=== PATIENT | female | born 1950 | race Caucasian/White ===

== ENCOUNTER → 2016-12-27 | Outpatient (CLI) | payer MEDICARE, OTHER ==
--- NOTE | 2016-12-27 14:47 | KCIC ---
PROCEDURE Bilateral knees, three views. HISTORY Pain. FINDINGS Frontal, lateral and oblique views of both knees are obtained. There is mild right medial compartment joint space narrowing with subchondral sclerosis and marginal spurring. There is suspected degenerative subchondral cyst formation involving the right patella. There is no fracture, dislocation or subluxation. There are small joint effusions. IMPRESSION 1. Mild right knee medial and patellofemoral compartment osteoarthritis. 2. Suspected small bilateral knee effusions. Electronically signed by: Azeb Acosta (Dec 27, 2016 14:45:53)
== END | disposition home or self-care (01) ==
LOC: KCIC 13:58
PROVIDERS: ATTEND Family Medicine
DX: M17.9 Osteoarthritis of knee, unspecified (principal); M25.462 Effusion, left knee; M25.461 Effusion, right knee
CPT/HCPCS: 73562

== ENCOUNTER → 2017-04-24 | Outpatient (CLI) | payer MEDICARE, OTHER ==
--- NOTE | 2017-04-24 10:22 | KCIC ---
MR of the left knee Indication: Left knee pain since November. Pain is medial. Technique: The standard multiplanar sequences are obtained. Findings: Medial meniscus: Degenerative tear. Lateral meniscus: Intact. Anterior cruciate ligament: Intact Posterior cruciate ligament: Intact Medial collateral ligament: Mild proximal thickening without tear. Mild fluid along the margin. Iliotibial band: Intact. Posterolateral structures: Fibular collateral ligament, biceps tendon and popliteus tendon are intact. Extensor mechanism: Intact. Fluid: Small joint effusion. Small Jara's cyst. There is some disorganized fluid below the cyst compatible with leakage or rupture. Articular cartilage -patellofemoral joint: Moderate chondromalacia at the patella. -medial compartment: Moderate to severe chondromalacia. Mild subchondral marrow edema at the medial tibial plateau. -lateral compartment:Intact Bones: No acute macro fracture. No aggressive bone destruction. Soft tissue: Otherwise unremarkable. Impression: 1. Medial meniscal tear. 2. Small ruptured Jara's cyst. 3. Primary osteoarthritis. 4. Mild medial collateral ligament sprain. Electronically signed by: Bret Awan MD (04/24/2017 10:18 AM)
== END | disposition home or self-care (01) ==
LOC: KCIC MRI 08:18
PROVIDERS: ATTEND Orthopaedic Surgery
DX: S83.242A Other tear of medial meniscus, current injury, left knee, initial encounter (principal); S83.412A Sprain of medial collateral ligament of left knee, initial encounter; S86.812A Strain of other muscle(s) and tendon(s) at lower leg level, left leg, initial encounter; M17.12 Unilateral primary osteoarthritis, left knee; M25.862 Other specified joint disorders, left knee; X58.XXXA Exposure to other specified factors, initial encounter; Y93.89 Activity, other specified; Y92.89 Other specified places as the place of occurrence of the external cause; Y99.8 Other external cause status
CPT/HCPCS: 73721

== ENCOUNTER 2017-06-11 08:53 | Day surgery (SDC) | payer MEDICARE, OTHER ==
[~2017-06-11] VITALS: Ht 170.2 cm; Wt 70.0 kg
[~2017-06-11 08:53] MED LIST: HYDROmorphone 2 MG/ML VIAL IV PRN; IV RINGERS,LACTATED 1000ML 1,000 ML IV SCH; LIDOCAINE 1% 1 ML SYRINGE. ID PRN; LIDOCAINE 2% PF Vial for OR 5 ML VIAL. ONE; MORPHINE SULFATE 2 MG/ML DISP.SYRIN. IV PRN; ONDANSETRON PF 4 MG/2 ML VIAL. IV PRN; PROCHLORPERAZINE 10 MG/2 ML VIAL. IV PRN; PROPOFOL 20 ML IV ONE; fentaNYL PF VIAL 100 MCG/2 ML VIAL IV PRN; fentaNYL PF VIAL 100 MCG/2 ML VIAL ONE
[2017-06-11] MEDS ORDERED: ALPR0.25 PO (09:13)
[2017-06-11] MEDS ORDERED: SEVOFLURANE 31 TO 60 MINUTES. IH ONE (11:11)
[2017-06-11] MEDS ORDERED: DEXAMETHASONE SOD PHOS 20 MG/5 ML VIAL. ONE (11:11)
--- NOTE | 2017-06-11 11:13 | DISCH ---
DISCHARGE INSTRUCTIONS Condition on Discharge Condition on Discharge: Stable Activity After Discharge Activity Instructions for Disc: Other, see below Other activity instructions: advance activities slowly as tolerated Bathing Instructions: Shower-keep dressing dry Weight Bearing Status after Di: Full weight bearing Diet after Discharge Diet after Discharge: Regular Wound Incision Care Wound/Incision Care: Ice to area for comfort, Keep wound elevated, Change dressing Other wound/incision instructi: remove dressing in 2 days then may get wet in shower Contacting the DRWolf after DC Call your doctor for: Concerns you may have Follow-Up Follow up with: Dr. Knott 7-10 days JEFE KNOTT MD Jun 11, 2017 11:13
[2017-06-11] MEDS ORDERED: HYDR-965 PO (11:14)
[2017-06-11] MEDS ORDERED: BUPIVACAINE MPF 0.5% 30 ML VIAL. ONE (11:26)
[2017-06-11] MEDS ORDERED: ONDANSETRON PF 4 MG/2 ML VIAL. ONE (11:35)
[2017-06-11] MEDS ORDERED: HYDROcodone/APAP 7.5/325MG 1 TAB TABLET PO ONE (12:15)
[2017-06-11 12:31] VITALS: BP 157/91
--- NOTE | 2017-06-11 12:58 | PDOC4 ---
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 Since then has had mechanical pain symptoms of catching and locking on physical examination had a positive Dana's sign with medial joint line tenderness and MRI had confirmed clinical suspicion of medial meniscus tear had gone over with her the risks benefits postoperative course of operative treatment and rationale including the structure and function of the meniscus. All her questions were answered I particularly emphasized the fact that I cannot do any degenerative changes present and they would have to be dealt with symptomatically so she may not get complete pain relief from the procedure and in addition may have surgical risks of infection medical or anesthetic complications among others. All her questions were answered she wants to proceed with surgical evaluation and treatment. Operative text: Patient was identified procedure verified patient was placed in supine position on the operating table after adequate amounts of general endotracheal anesthesia were administered left lower extremity was prepped and draped in standard sterile fashion with a thigh tourniquet and the arthroscopic knee redd. After timeout was performed patient procedure identified and verified the left lower extremity was exsanguinated with Esmarch bandage tourniquet inflated to 250 mmHg anterolateral portal was established a medial portal established using spinal needle localization and the knee joint was systematically examined she was noted to have a displaceable tear of the posterior horn medial meniscus along with some grade 3 chondromalacia of the medial femoral condyle with a small chondral flap tear that was treated with chondroplasty the remainder of the cartilage defect was not full-thickness and was stable meniscus had a complex tear involving the body and posterior horn which was trimmed back to stable tissue using arthroscopic punch and shaver and radiused appropriately. ACL and lateral meniscus were probed and found to be intact grade 3 chondral fraying on the patella was trimmed lightly with arthroscopic shaver. The knee was toured to ensure any loose cartilage fragments were removed joint was drained of arthroscopic fluid portals closed with nylon suture area around the fat pad and intra-articular were infused with a total of about 30 mL of half percent plain Marcaine sterile dressings were applied and patient was returned to recovery room in stable condition having tolerated procedure well JEFE SANDHU MD Jun 11, 2017 12:58
== END 2017-06-11 13:34 | disposition home or self-care (01) ==
LOC: SURG 08:53
PROVIDERS: ATTEND Orthopaedic Surgery
DX: S83.232A Complex tear of medial meniscus, current injury, left knee, initial encounter (principal); M23.42 Loose body in knee, left knee; X58.XXXA Exposure to other specified factors, initial encounter; Y93.89 Activity, other specified; Y92.89 Other specified places as the place of occurrence of the external cause; Y99.9 Unspecified external cause status; Z87.39 Personal history of other diseases of the musculoskeletal system and connective tissue; F32.9 Major depressive disorder, single episode, unspecified; Z72.89 Other problems related to lifestyle; Z87.891 Personal history of nicotine dependence
CPT/HCPCS: 29881; 97116; 97161; J0690; J1100; J2405; J2704; J3010; J3490; J2001

== ENCOUNTER → 2018-02-25 | Outpatient (CLI) | payer MEDICARE, OTHER | END | disposition home or self-care (01) | LOC: KCIC DEXA 12:24 | DX: Z13.820 Encounter for screening for osteoporosis (principal); Z78.0 Asymptomatic menopausal state | CPT/HCPCS: 77080 ==

== ENCOUNTER → 2019-07-08 | Outpatient (CLI) | payer MEDICARE ==
[~2019-07-08] MED LIST changes: +ALPR0.25 PO; +HYDR-3165 PO; -HYDROmorphone 2 MG/ML VIAL IV PRN; -IV RINGERS,LACTATED 1000ML 1,000 ML IV SCH; -LIDOCAINE 1% 1 ML SYRINGE. ID PRN; -LIDOCAINE 2% PF Vial for OR 5 ML VIAL. ONE; -MORPHINE SULFATE 2 MG/ML DISP.SYRIN. IV PRN; -ONDANSETRON PF 4 MG/2 ML VIAL. IV PRN; -PROCHLORPERAZINE 10 MG/2 ML VIAL. IV PRN; -PROPOFOL 20 ML IV ONE; -fentaNYL PF VIAL 100 MCG/2 ML VIAL IV PRN; -fentaNYL PF VIAL 100 MCG/2 ML VIAL ONE
--- NOTE | 2019-07-08 16:37 | KCIC ---
EXAM: Thoracolumbar spine-standing DATE: 07/08/2019 12:00 AM INDICATION: Scoliosis COMPARISON: No Prior FINDINGS: There are 12 rib bearing thoracic vertebral bodies and 5 nonrib-bearing lumbar-type vertebral bodies. There is hazy approximately 51 degrees dextroscoliosis of the thoracolumbar spine, apex L1. There is mild lateral translation of L2 on L3 and L3 on L4. Disc height loss is seen at multiple thoracic levels with endplate proliferative change, incompletely assessed on these frontal views. IMPRESSION: Levoscoliosis of the thoracolumbar spine, apex L1. Electronically signed by: Angelo Zarate MD (07/08/2019 4:34 PM) [facility]
== END | disposition home or self-care (01) ==
LOC: KCIC 10:29
PROVIDERS: ATTEND Nurse Practitioner Family
DX: M41.85 Other forms of scoliosis, thoracolumbar region (principal); Z68.25 Body mass index [BMI] 25.0-25.9, adult
CPT/HCPCS: 72082

== ENCOUNTER → 2019-10-28 | Outpatient (CLI) | payer MEDICARE ==
--- NOTE | 2019-10-29 08:06 | KCIC ---
ESOPHAGRAM/BARIUM SWALLOW History: Epigastric pain and belching, cramping Comparison: None. Findings: Barium esophagram was performed. There was no significant hiatal hernia or flow-limiting stricture. There was incomplete relaxation of the lower esophageal sphincter without significant flow limitation. There was mild retention of contrast with patient in prone oblique position, mild esophageal dysmotility. Possibly time: 90 seconds, 34 images Impression: 1. There was mild esophageal dysmotility and incomplete relaxation of the lower esophageal sphincter. Electronically signed by: Karel De Jesus MD (10/29/2019 8:03 AM) [id number]
== END | disposition home or self-care (01) ==
LOC: KCIC 10:53
PROVIDERS: ATTEND Nurse Practitioner Family
DX: K22.4 Dyskinesia of esophagus (principal)
CPT/HCPCS: 74220

== ENCOUNTER → 2020-11-10 | Outpatient (CLI) | payer MEDICARE ==
--- NOTE | 2020-11-10 12:17 | KCIC ---
STUDY: MRI of the right shoulder without contrast INDICATION: Right shoulder pain. Limited range of motion. No reported injury. COMPARISON: None. TECHNIQUE: Multiplanar MR imaging of the right shoulder performed without the use of intravenous or i ntra-articular contrast. FINDINGS: AC joint: Moderate AC joint arthrosis with capsular hypertrophy and articular surface remodeling. Mil d subacromial subdeltoid bursitis. Rotator cuff: Advanced supraspinatus and infraspinatus tendinosis. Several articular sided and inters titial tears of the supraspinatus and infraspinatus both occurring at and medial to the footprint wit h the most notable area of tearing involving the mid to posterior supraspinatus which is collectively high-grade with over 75 percent cross-sectional involvement. This complex tear measures 1.1 cm AP by 0.7 cm mediolateral, image 10 series 9 and image 13 series 7. The teres minor remains intact. Subsca pularis tendinosis and partial-thickness articular sided and interstitial tearing of the insertional fibers. Rotator cuff muscular bulk is relatively well-maintained. Labrum: Multifocal labral degeneration and degenerative tearing. Long head biceps tendon: Severe tendinosis as well as partial tearing of both the intra-articular and extra-articular portions. Cartilage: Full-thickness chondral loss involving a large portion of the glenoid. Multifocal humeral head chondrosis most notably at the superomedial aspect such as on image 14 series 7. Bones: Glenoid articular surface remodeling with subchondral edema and cystic change most pronounced along the anterior lip and inferior rim. Humeral head osteophyte formation. Patchy humeral head and p roximal shaft marrow edema in addition to lesser and greater tuberosity remodeling and cyst formation . Miscellaneous: Moderate to large shoulder joint effusion with synovitis. Subcoracoid bursitis. Long h ead biceps tenosynovitis. No overt periarticular soft tissue edema. No axillary adenopathy by size cr iteria. Impression: 1. Advanced supraspinatus, infraspinatus and subscapularis tendinosis. Several areas of articular si ded and interstitial tearing with the most notable complex tear at the mid to posterior supraspinatus at the footprint measuring 1.1 cm AP by 0.7 cm mediolateral. This more localized tear is high-grade with 75% or more cross-sectional involvement. Rotator cuff muscular bulk is maintained. 2. Severe long head biceps tendinosis as well as partial tears of the intra-articular and extra-edin cular portion. Multifocal labral tears and labral degeneration. Background advanced glenohumeral join t arthrosis with prominent areas of full-thickness chondral loss with associated subchondral edema an d cystic change. 3. Moderate to large shoulder joint effusion with synovitis. Long head biceps tenosynovitis in addit ion to subcoracoid and subacromial subdeltoid bursitis. Patchy marrow edema within the humeral head a nd visualized shaft and humeral head cystic change. The majority of the findings are consistent with generic osteoarthrosis but a superimposed inflammatory arthritis is not excluded mainly due to the de gree of humeral edema. An infectious process is felt unlikely but if there is any concern clinically joint aspirate could be considered. 4. Moderate AC joint arthrosis. Electronically signed by: EVON LARA MD (11/10/2020 12:14 PM) [id number]
== END ==
LOC: KCIC MRI 09:26
PROVIDERS: ATTEND Nurse Practitioner Family
DX: M19.011 Primary osteoarthritis, right shoulder (principal); M25.411 Effusion, right shoulder; M65.811 Other synovitis and tenosynovitis, right shoulder
CPT/HCPCS: 73221